=== PATIENT | female | born 1970 | race Caucasian/White ===

== ENCOUNTER → 2018-05-29 | Outpatient (CLI) | payer OTHER ==
[~2018-05-29] MED LIST: ALIS1TAB4 PO; ALPR.5T; ALPR1T PO; ASP325T; ATR20T; CLOP75TA; FLUO40CA PO; FRSM20T PO; FURO40TA4; KCL20TCR; NF-ALI300T; NFNEB10T PO; NTR.4SL; OMEP-10; POTA99TA15 PO
[2018-05-29 05:53] LABS: ALANINE AMINOTRANSFERASE 18 U/L (0-55); ALBUMIN 4.1 GM/DL (3.2-4.5); ALKALINE PHOSPHATASE 69 U/L (40-136); BILIRUBIN,TOTAL 0.2 MG/DL (0.1-1.0); BUN/CREATININE RATIO 22; CALCIUM 9.4 MG/DL (8.5-10.1); CARBON DIOXIDE 22 MMOL/L (21-32); CHLORIDE 105 MMOL/L (98-107); CHOLESTEROL 199 MG/DL (< 200); CREATININE SERUM 0.85 MG/DL (0.60-1.30); GFR ESTIMATED > 60; HDL CHOLESTEROL 48 MG/DL (40-60); SODIUM 137 MMOL/L (135-145); TOTAL PROTEIN 6.5 GM/DL (6.4-8.2); TRIGLYCERIDES 132 MG/DL (<150); VLDL CHOLESTEROL 26 MG/DL (5-40)
[2018-05-29 06:12] LABS: GLUCOSE 110 MG/DL (70-105)
== END ==
LOC: LAB 05:09
PROVIDERS: ATTEND Internal Medicine Cardiovascular Disease
DX: I10 Essential (primary) hypertension (principal); R00.2 Palpitations; E78.2 Mixed hyperlipidemia; I49.3 Ventricular premature depolarization; I70.1 Atherosclerosis of renal artery
CPT/HCPCS: 36415; 80053; 80061

== ENCOUNTER → 2018-06-16 | Outpatient (CLI) | payer OTHER | LOC: CARD 09:33 | PROVIDERS: ATTEND Physician Assistant | DX: I10 Essential (primary) hypertension (principal); R00.2 Palpitations; E78.2 Mixed hyperlipidemia; I49.3 Ventricular premature depolarization; I70.1 Atherosclerosis of renal artery; I08.1 Rheumatic disorders of both mitral and tricuspid valves | CPT/HCPCS: 93306 ==

== ENCOUNTER → 2021-01-21 | Outpatient (CLI) | payer OTHER | LOC: CARD 10:46 | PROVIDERS: ATTEND Internal Medicine Cardiovascular Disease | DX: I11.9 Hypertensive heart disease without heart failure (principal); I34.0 Nonrheumatic mitral (valve) insufficiency | CPT/HCPCS: 93306 ==

== ENCOUNTER 2022-12-13 05:51 | Emergency (ER) | payer BC, OTHER ==
[~2022-12-13] VITALS: Ht 160 cm; Wt 127.0 kg
[2022-12-13] MEDS ORDERED: hydrALAZINE (APESOLINE) 20 MG/ML VIAL ONE (06:13)
[2022-12-13] MEDS ORDERED: OXYMETAZOLINE (AFRIN) 0.05% NA 30 ML BTL STA (06:16)
--- NOTE | 2022-12-13 06:28 | ED General ---
General Chief Complaint: Facial Problems Stated Complaint: LEFT SIDE OF FACE SWOLLEN Source of Information: Patient Exam Limitations: No Limitations History of Present Illness Date Seen by Provider: Dec 13, 2022 Time Seen by Provider: 06:02 Initial Comments Here with report of facial swelling on the left side. She is currently being t reated for sinus infection with azithromycin. She also had a shot of Decadron. She arrives with reddened skin and she reports that her blood pressure is likely quite elevated as she gets red like this when her blood pressure still high. She has been taking ibuprofen and acetaminophen at max dosing and potentially a little higher due to facial pain. States the pain to the left side of the face and swelling is getting worse. She had a previous bad tooth on the left side. Does not know if that is the problem or if she is having markedly increasing sinus congestion and pressure. Does note significant nasal congestion. No reported breathing problems. Does report chills but no fever, sore throat, nausea, vomiting or diarrhea. She does have longstanding hypertension and does have one renal artery stent. Timing/Duration: 3-4 Days, Getting Worse Severity: Moderate, Severe Associated Systoms: No Cough, No Nausea/Vomiting Allergies and Home Medications Allergies Coded Allergies: Calcium Channel Blocking Agent Dilt (Verified Allergy, Unknown, 12/24/08) Penicillins (Verified Allergy, Unknown, 12/24/08) Patient Home Medication List Home Medication List Reviewed: Yes Aliskiren/Hydrochlorothiazide (Tekturna Hct 300-25 Mg Tablet) 1 Each Tablet, 1 TAB PO DAILY, (Reported) Entered as Reported by: ALEJANDRINA KAHN on 11/02/121843 Alprazolam (Xanax) 1 Mg Tablet, 1 MG PO BID PRN, (Reported) Entered as Reported by: ALEJANDRINA KAHN on 11/02/121843 Fluoxetine Hcl (Fluoxetine Hcl) 40 Mg Capsule, 40 MG PO BID, (Reported) Entered as Reported by: ALFREDO VEGA on 07/01/09 1302 Furosemide (Lasix Tab) 20 Mg Tab, 40 MG PO DAILY, (Reported) Entered as Reported by: CHRISTOPHER HORTA on 07/01/09 1731 Nebivolol Hcl (Bystolic) 10 Mg Tablet, 10 MG PO DAILY, (Reported) Entered as Reported by: ALFREDO VEGA on 07/01/09 1304 Potassium Gluconate (Potassium) 99 Mg Tablet, 99 MG PO DAILY, (Reported) Entered as Reported by: ALEJANDRINA KAHN on 11/02/12 2533 Review of Systems Review of Systems Constitutional: chills; No fever EENTM: nose congestion, other (Facial swelling especially left cheek up towards her eye with bilateral sinus tenderness including maxillary on the left and frontal bilateral); No throat pain Respiratory: No cough, No short of breath Cardiovascular: No chest pain, No edema Gastrointestinal: No nausea, No vomiting Genitourinary: no symptoms reported Skin: change in color (Reddened skin especially to the upper extremities, chest and face); No pruritus, No rash Psychiatric/Neurological: Denies Anxiety; Headache Past Bsqxonq-Hdygvf-Opvarv Hx Patient Social History Tobacco Use?: No Use of E-Cig and/or Vaping dev: No Substance use?: No Alcohol Use?: No Past Medical History Surgeries: Yes Coronary Stent (Renal artery), Hysterectomy Respiratory: Yes Sleep Apnea Cardiac: Yes Hypertension Reproductive Disorders: No Genitourinary: Yes (Renal artery stenosis) Family Medical History Reviewed Nursing Family Hx Hypertension Physical Exam Vital Signs Vital Signs - First Documented 12/13/22 06:02 Temp 36.5 Pulse 99 Resp 20 B/P (MAP) 196/126 (149) Pulse Ox 97 O2 Delivery Room Air Capillary Refill : Height, Weight, BMI Height: '" Weight: lbs. oz. kg; BMI Method: General Appearance: WD/WN, Mild Distress HEENT: PERRL/EOMI, Other (Facial swelling on the left. Redness to the face. Markedly inflamed nasal mucosa) Neck: Non Tender, Supple; No Lymphadenopathy (L), No Lymphadenopathy (R) Respiratory: Lungs Clear, Normal Breath Sounds Cardiovascular: Regular Rate, Rhythm, No Murmur Extremity: Normal Range of Motion, Non Tender Neurologic/Psychiatric: Alert, Oriented x3 Skin: Warm/Dry, Erythema (Redness noted to the skin of the upper extremities, chest, neck and face); No Rash Progress/Results/Core Measures Suspected Sepsis SIRS Temperature: Pulse: Respiratory Rate: Laboratory Tests 12/13/22 06:20: White Blood Count 14.6H Blood Pressure / Mean: Laboratory Tests 12/13/22 06:20: Creatinine 0.87, Platelet Count 234, Total Bilirubin 0.5 Results/Orders Lab Results Laboratory Tests Test 12/13/22 06:20 Range/Units White Blood Count 14.6 H 4.3-11.0 10^3/uL Red Blood Count 4.52 3.80-5.11 10^6/uL Hemoglobin 14.5 11.5-16.0 g/dL Hematocrit 43 35-52 % Mean Corpuscular Volume 95 80-99 fL Mean Corpuscular Hemoglobin 32 25-34 pg Mean Corpuscular Hemoglobin Concent 34 32-36 g/dL Red Cell Distribution Width 12.8 10.0-14.5 % Platelet Count 234 130-400 10^3/uL Mean Platelet Volume 10.7 9.0-12.2 fL Immature Granulocyte % (Auto) 1 % Neutrophils (%) (Auto) 61 42-75 % Lymphocytes (%) (Auto) 29 12-44 % Monocytes (%) (Auto) 7 0-12 % Eosinophils (%) (Auto) 1 0-10 % Basophils (%) (Auto) 1 0-10 % Neutrophils # (Auto) 8.9 H 1.8-7.8 10^3/uL Lymphocytes # (Auto) 4.3 H 1.0-4.0 10^3/uL Monocytes # (Auto) 1.1 H 0.0-1.0 10^3/uL Eosinophils # (Auto) 0.2 0.0-0.3 10^3/uL Basophils # (Auto) 0.1 0.0-0.1 10^3/uL Immature Granulocyte # (Auto) 0.2 H 0.0-0.1 10^3/uL Neutrophils % (Manual) 62 % Lymphocytes % (Manual) 32 % Monocytes % (Manual) 6 % Eosinophils % (Manual) 0 % Basophils % (Manual) 0 % Band Neutrophils 0 % Blood Morphology Comment NORMAL Sodium Level 141 135-145 MMOL/L Potassium Level 3.9 3.6-5.0 MMOL/L Chloride Level 105 98-107 MMOL/L Carbon Dioxide Level 22 21-32 MMOL/L Anion Gap 14 5-14 MMOL/L Blood Urea Nitrogen 13 7-18 MG/DL Creatinine 0.87 0.60-1.30 MG/DL Estimat Glomerular Filtration Rate 81 BUN/Creatinine Ratio 15 Glucose Level 93 70-105 MG/DL Calcium Level 9.7 8.5-10.1 MG/DL Corrected Calcium 8.5-10.1 MG/DL Total Bilirubin 0.5 0.1-1.0 MG/DL Aspartate Amino Transf (AST/SGOT) 11 5-34 U/L Alanine Aminotransferase (ALT/SGPT) 19 0-55 U/L Alkaline Phosphatase 72 40-136 U/L C-Reactive Protein High Sensitivity 0.74 H 0.00-0.50 MG/DL Total Protein 7.8 6.4-8.2 GM/DL Albumin 4.8 H 3.2-4.5 GM/DL My Orders Orders - JUANIS FOX MD Cbc With Automated Diff (12/13/22 06:16) Comprehensive Metabolic Panel (12/13/22 06:16) Hs C Reactive Protein (12/13/22 06:16) Ed Iv/Invasive Line Start (12/13/22 06:16) Hydralazine Injection (Apresoline Inject (12/13/22 06:30) Oxymetazoline 0.05% Nasal Kibler (Afrin 0. (12/13/22 06:16) Manual Differential (12/13/22 06:20) Ct Maxillofacial W (12/13/22 07:20) Ns Iv 500 Ml (Sodium Chloride 0.9%) (12/13/22 07:30) Iohexol Injection (Omnipaque 350 Mg/Ml 1 (12/13/22 08:15) Received Contrast (Hold Metformin- Contr (12/13/22 08:15) Ns (Ivpb) (Sodium Chloride 0.9% Ivpb Bag (12/13/22 08:15) Ceftriaxone 1 Gm Pre-Mix (Rocephin 1 Gm (12/13/22 08:47) Lidocaine 1% Inj 10 Ml (Xylocaine 1% Inj (12/13/22 09:00) Ketorolac Injection (Toradol Injection) (12/13/22 10:09) Medications Given in ED Current Medications Medications Dose Ordered Sig/Marilyn Route Start Time Stop Time Status Last Admin Dose Admin Hydralazine HCl 20 mg ONCE ONCE IV 12/13/22 06:30 12/13/22 06:31 DC 12/13/22 06:23 10 MG Iohexol 100 ml ONCE ONCE IV 12/13/22 08:15 12/13/22 08:16 DC 12/13/22 08:04 75 ML Lidocaine HCl 10 ml ONCE ONCE INJ 12/13/22 09:00 12/13/22 09:01 DC 12/13/22 09:04 10 ML Sodium Chloride 100 ml ONCE ONCE IV 12/13/22 08:15 12/13/22 08:16 DC 12/13/22 08:04 80 ML Sodium Chloride 500 ml @ 0 mls/hr Q0M ONCE IV 12/13/22 07:30 12/13/22 07:31 DC 12/13/22 09:05 500 MLS/HR Vital Signs/I&O 12/13/22 06:02 Temp 36.5 Pulse 99 Resp 20 B/P (MAP) 196/126 (149) Pulse Ox 97 O2 Delivery Room Air Capillary Refill : Progress Note : Progress Note Seen and evaluated. IV, labs including CBC, CMP and CRP. Due to significant hypertension, hydralazine 20 mg IV ordered that we will give and split doses of 10 mg IV x2 if needed. I have discussed with her the option of possible CT scan of the face if labs are concerning for significant infection. We will also hold on that until lab evaluation of renal function is complete. Differential diagnosis includes sinus infection, periorbital cellulitis, renal dysfunction, hypertensive disease 0730: Labs reviewed. CBC does show elevated white count without bandemia. Chemistry showed normal renal function and slightly elevated CRP with otherwise normal electrolytes. I have ordered CT maxillofacial with contrast due to concerns about periorbital cellulitis and facial cellulitis due to patient's complaint of persistent and worsening pain and swelling. Monitor patient. 0815: CT complete pending read. I do see abscess left of midline to the teeth in the area of #11 to 13. There does seem to be some inflammatory changes surrounding. Pending radiology report. 0845: Radiology report noted. Abscess as noted in report. I did discuss all of this with the patient. She does have an area of swelling above the tooth #12 the appears to be an abscess that may be able to drain. I did discuss this with the patient. We will go ahead and initiate Rocephin 1 g IV due to concerns of cellulitis and I will attempt to drain this abscess. Lidocaine 1% topical initiated to gauze and then we will do local injection and try to numb the area. This will be followed by incision and drainage. Patient was amiable to the attempt. Monitor patient. 1015: I was preparing to attempt incision and drainage when area of concern spontaneously drained. She is actually feeling better after that. I have ordered Toradol 30 mg IV. I did discuss the case with LAYLA Pimentel. He agrees with therapy currently and would like to see her in office tomorrow morning for evaluation for extraction and further treatment as indicated. We will initiate clindamycin outpatient. I did discuss this with the patient and she is in agreement. I did discuss at length with the patient regarding OTC medications. We did discuss option of stronger pain medicine and she would like to wait at this point which is reasonable. She is feeling better after drainage so I think that will help to. Discharged home with return precautions. Patient verbalized understanding instructions and agreement with plan. Diagnostic Imaging Diagonstic Imaging: CT Plain Films/CT/US/NM/MRI: other Comments [facility], [place] NAME: MONICA SCHAEFFER [facility] REC#: [id number] PT STATUS: REG ER : 1970 PHYSICIAN: JUANIS FOX MD ADMIT DATE: 12/13/22/ER Draft Date of Exam:12/13/22 CT MAXILLOFACIAL W PROCEDURE: CT maxillofacial with contrast. TECHNIQUE: After intravenous administration of contrast, axial images were obtained through the face and reformatted into coronal and sagittal planes. Auto Exposure Controls were utilized during the CT exam to meet ALARA standards for radiation dose reduction. INDICATION: Left-sided facial pain and swelling. COMPARISON: None. DISCUSSION: Small amount of induration noted within the left cheek subcutaneous fat, suggesting changes from infection or inflammation. There is no discrete or drainable fluid collection identified. The bilateral submandibular glands and parotid glands appear within normal limits. Multiple periapical lucencies noted within the maxilla. Tooth #12 appears cracked. Adjacent to this, there is some destruction of the periosteum with a suggested adjacent fluid collection consistent with a small subperiosteal abscess measuring 1.7 x 0.8 cm. The sinuses are well-aerated. The mastoid air cells are well-aerated. The orbits appear symmetrical. The visualized intracranial contents are unremarkable. No acute osseous abnormality identified otherwise. The temporomandibular joints are maintained. Reactive-appearing adenopathy is noted. IMPRESSION: 1. Tooth #12 within the left maxilla is cracked and also has small periapical lucencies present. The overlying outer cortex of the maxilla is destroyed with an adjacent fluid collection suggesting a subperiosteal abscess. There is likely inflammatory change or associated cellulitis within the overlying left cheek. Dictated on workstation # [id number] Dict: 12/13/22811 Trans: 12/13/22822 [facility] [id number] Interpreted by: TAMEKA ORANTES MD Electronically signed by: Departure Impression Primary Impression: Apical abscess Additional Impression: Facial cellulitis Disposition: HOME, SELF-CARE Condition: Stable Departure-Patient Inst. Decision time for Depature: 10:21 Referrals: SILVIO HERNÁNDEZ APRN (PCP) Primary Care Physician ERNA BHATIA DDS Patient Instructions: Cellulitis (Skin Infection), Adult ED, Dental Pain ED Add. Discharge Instructions: All discharge instructions reviewed with patient and/or family. Voiced understanding. Take medications as directed. You may use Tylenol/acetaminophen 1000 mg (2 tabs) every 6 hours as needed for pain or fever. You may take ibuprofen up to 800 mg (4 tabs) every 8 hours as needed for pain or fever. Do not exceed doses listed. You may rinse your mouth with salt water by using 1 teaspoon of salt an d 1 cup of warm water and dissolving. Swish this solution 2-3 times daily and spit it out. Do not drink the salt water. Follow-up at Dr. Bhatia's office tomorrow between 8 and 815 and he will get you seen. Return for worse pain, weakness, fever, vomiting, breathing problems or other concerns as needed. You were given a dose of Toradol. Your next dose of ibuprofen would not be due until 4 PM today. Scripts Clindamycin HCl (Clindamycin HCl) 300 Mg Capsule 300 MG PO QID for 7 Days, #28 CAP Prov: JUANIS FOX MD 12/13/22 Copy Copies To 1: ERNA BHATIA DDS, TIMOTHY D MD Dec 13, 2022 06:28
[2022-12-13 06:30] LABS: BASOPHILS # (AUTO) 0.1 10^3/uL (0.0-0.1); BASOPHILS % (AUTO) 1 % (0-10); EOSINOPHILS # (AUTO) 0.2 10^3/uL (0.0-0.3); EOSINOPHILS % (AUTO) 1 % (0-10); HEMATOCRIT 43 % (35-52); HEMOGLOBIN 14.5 g/dL (11.5-16.0); LYMPHOCYTES # (AUTO) 4.3 10^3/uL (1.0-4.0); LYMPHOCYTES % (AUTO) 29 % (12-44); MEAN CORPUSCULAR HEMOGLOBIN 32 pg (25-34); MEAN CORPUSCULAR HGB CONC 34 g/dL (32-36); MEAN CORPUSCULAR VOLUME 95 fL (80-99); MEAN PLATELET VOLUME 10.7 fL (9.0-12.2); MONOCYTES # (AUTO) 1.1 10^3/uL (0.0-1.0); MONOCYTES % (AUTO) 7 % (0-12); NEUTROPHILS # (AUTO) 8.9 10^3/uL (1.8-7.8); NEUTROPHILS % (AUTO) 61 % (42-75); PLATELET COUNT 234 10^3/uL (130-400); WHITE BLOOD COUNT 14.6 10^3/uL (4.3-11.0)
[2022-12-13] MEDS ORDERED: hydrALAZINE (APESOLINE) 20 MG/ML VIAL IV ONE (06:30)
[2022-12-13 06:51] LABS: ALBUMIN 4.8 GM/DL (3.2-4.5); CHLORIDE 105 MMOL/L (98-107); POTASSIUM 3.9 MMOL/L (3.6-5.0); SODIUM 141 MMOL/L (135-145)
[2022-12-13 06:52] LABS: CALCIUM 9.7 MG/DL (8.5-10.1)
[2022-12-13 06:53] LABS: GLUCOSE 93 MG/DL (70-105)
[2022-12-13 06:54] LABS: TOTAL PROTEIN 7.8 GM/DL (6.4-8.2)
[2022-12-13 06:55] LABS: BILIRUBIN,TOTAL 0.5 MG/DL (0.1-1.0); CARBON DIOXIDE 22 MMOL/L (21-32)
[2022-12-13 06:57] LABS: ALKALINE PHOSPHATASE 72 U/L (40-136); CREATININE SERUM 0.87 MG/DL (0.60-1.30); GFR ESTIMATED 81
[2022-12-13 06:58] LABS: BUN/CREATININE RATIO 15
[2022-12-13 07:00] LABS: ALANINE AMINOTRANSFERASE 19 U/L (0-55)
[2022-12-13 07:12] LABS: BAND NEUTROPHILS 0 %; BASOPHILS % (MANUAL) 0 %; EOSINOPHILS % (MANUAL) 0 %; LYMPHOCYTES % (MANUAL) 32 %; MONOCYTES % (MANUAL) 6 %; NEUTROPHILS % (MANUAL) 62 %; RBC MORPH NORMAL
[2022-12-13] MEDS ORDERED: NS IV 500 ML 500 ML IV ONE (07:30)
[2022-12-13] MEDS ORDERED: NS 100 ML (IVPB) BAG IV ONE (08:15)
[2022-12-13] MEDS ORDERED: IOHEXOL 350 MG/ML 100 ML (OMNIPAQUE 350) VIAL IV ONE (08:15)
[2022-12-13] MEDS ORDERED: HOLD METFORMIN - RECEIVED CONTRAST 20 ML VIAL IV SCH (08:15)
--- NOTE | 2022-12-13 08:23 | Diagnostic Imaging Report ---
PROCEDURE: CT maxillofacial with contrast. TECHNIQUE: After intravenous administration of contrast, axial images were obtained through the face and reformatted into coronal and sagittal planes. Auto Exposure Controls were utilized during the CT exam to meet ALARA standards for radiation dose reduction. INDICATION: Left-sided facial pain and swelling. COMPARISON: None. DISCUSSION: Small amount of induration noted within the left cheek subcutaneous fat, suggesting changes from infection or inflammation. There is no discrete or drainable fluid collection identified. The bilateral submandibular glands and parotid glands appear within normal limits. Multiple periapical lucencies noted within the maxilla. Tooth #12 appears cracked. Adjacent to this, there is some destruction of the periosteum with a suggested adjacent fluid collection consistent with a small subperiosteal abscess measuring 1.7 x 0.8 cm. The sinuses are well-aerated. The mastoid air cells are well-aerated. The orbits appear symmetrical. The visualized intracranial contents are unremarkable. No acute osseous abnormality identified otherwise. The temporomandibular joints are maintained. Reactive-appearing adenopathy is noted. IMPRESSION: 1. Tooth #12 within the left maxilla is cracked and also has small periapical lucencies present. The overlying outer cortex of the maxilla is destroyed with an adjacent fluid collection suggesting a subperiosteal abscess. There is likely inflammatory change or associated cellulitis within the overlying left cheek. Dictated by: Dictated on workstation # [id number]
[2022-12-13] MEDS ORDERED: cefTRIAXone 1 GM PRE-MIX 50 ML IV STA (08:47)
[2022-12-13] MEDS ORDERED: LIDOCAINE 1% INJ 10 ML VIAL INJ ONE (09:00)
[2022-12-13] MEDS ORDERED: KETOROLAC 30 MG/ML VIAL IVP STA (10:09)
[2022-12-13] MEDS ORDERED: CLIN-144 PO (10:27)
[2022-12-13 10:38] VITALS: BP 142/89
== END 2022-12-13 10:40 | disposition home or self-care (01) ==
LOC: EDUNIT# 05:51 → ER 05:57
DX: K04.7 Periapical abscess without sinus (principal); L03.213 Periorbital cellulitis; I10 Essential (primary) hypertension; Z88.0 Allergy status to penicillin
CPT/HCPCS: 36415; 70487; 80053; 85007; 85027; 86141

== ENCOUNTER → 2023-08-23 | Outpatient (CLI) | payer OTHER ==
[~2023-08-23] MED LIST changes: +CLIN-144 PO
== END ==
LOC: CARD 13:19
PROVIDERS: ATTEND Physician Assistant
DX: I11.9 Hypertensive heart disease without heart failure (principal); I34.0 Nonrheumatic mitral (valve) insufficiency
CPT/HCPCS: 93306